=== PATIENT | male | born 1985 | race Caucasian/White ===

== ENCOUNTER 2018-01-23 23:26 | Emergency (ER) | payer OTHER ==
[2018-01-24] MEDS: PHENYLephrine (100 MCG/ML) 5ML SYG IV (01:16)
[2018-01-24] MEDS: FENTAnyl 50 MCG/ML VIAL IV (02:02)
[2018-01-24] MEDS: KETOROLAC 30 MG INJ IV (02:02)
[2018-01-24] MEDS: LORAZEPAM 2 MG INJ IV (02:02)
[2018-01-24] MEDS: LIDOCAINE 1% (MDV) 20 ML INJ SC (02:30)
[2018-01-24] MEDS: morphine 2 MG INJ IV (02:35)
[2018-01-24] MEDS: LIDOCAINE 1% (MDV) 50 ML INJ INJ (02:44)
[2018-01-24] MEDS: AZITHROMYCIN 250 MG TAB PO (04:13)
[2018-01-24] MEDS: CEFTRIAXONE 250 MG INJ IM (04:13)
== END 2018-01-24 03:35 | disposition home or self-care (01) ==
LOC: E/R 23:26
DX: N34.2 Other urethritis (principal); R40.2142 Coma scale, eyes open, spontaneous, at arrival to emergency department; R40.2252 Coma scale, best verbal response, oriented, at arrival to emergency department; R40.2362 Coma scale, best motor response, obeys commands, at arrival to emergency department; Z79.4 Long term (current) use of insulin
CPT/HCPCS: 96374; 96375; 99284-25

== ENCOUNTER 2018-03-17 12:58 | Emergency (ER) | payer OTHER | END 2018-03-17 13:40 | disposition home or self-care (01) | LOC: E/R 12:58 | DX: N52.9 Male erectile dysfunction, unspecified (principal); Z79.4 Long term (current) use of insulin | CPT/HCPCS: 99282; Z7502 ==

== ENCOUNTER 2019-02-05 22:23 | Emergency (ER) | payer SELFPAY, OTHER | END 2019-02-06 03:00 | disposition left against medical advice (07) | LOC: FTE 22:23 | DX: Z53.21 Procedure and treatment not carried out due to patient leaving prior to being seen by health care provider (principal) ==

== ENCOUNTER 2019-02-06 12:48 | Emergency (ER) | payer OTHER ==
[2019-02-06] MEDS: KETOROLAC 60 MG INJ IM (17:28)
[2019-02-06] MEDS: HYDROCODONE/APAP (10/325) TAB PO (17:28)
== END 2019-02-06 17:50 | disposition home or self-care (01) ==
LOC: FTE 12:48
DX: M25.512 Pain in left shoulder (principal); E11.9 Type 2 diabetes mellitus without complications; Z79.4 Long term (current) use of insulin
CPT/HCPCS: 96372; 99284-25

== ENCOUNTER 2019-02-09 18:26 | Emergency (ER) | payer OTHER ==
[2019-02-09] MEDS: DIPHTH/TET/ACEL PERTUSS (ADULT) 0.5 ML VIAL IM* (19:11)
[2019-02-09] MEDS: HYDROCODONE/APAP (10/325) TAB PO (19:11)
[2019-02-09] MEDS: KETOROLAC 60 MG INJ IM (20:27)
== END 2019-02-09 20:44 | disposition home or self-care (01) ==
LOC: FTE 20:44
DX: S49.92XA Unspecified injury of left shoulder and upper arm, initial encounter (principal); E11.9 Type 2 diabetes mellitus without complications; F17.210 Nicotine dependence, cigarettes, uncomplicated; S61.237A Puncture wound without foreign body of left little finger without damage to nail, initial encounter; S61.235A Puncture wound without foreign body of left ring finger without damage to nail, initial encounter; X58.XXXA Exposure to other specified factors, initial encounter; Y92.89 Other specified places as the place of occurrence of the external cause; Z23 Encounter for immunization; Z79.4 Long term (current) use of insulin
CPT/HCPCS: 73030; 90471; 90715; 96372; 99284-25